=== PATIENT | male | born 1995 | race Caucasian/White ===

== ENCOUNTER 2017-11-04 20:57 | Emergency (ER) | payer BC, OTHER ==
[2017-11-04] MEDS ORDERED: MORPHINE SULFATE 4 MG INJ IV ONE ×2 (21:18→22:38)
[2017-11-04] MEDS ORDERED: Zofran 4 MG/2 ML VIAL IV ONE (21:18)
[2017-11-04] MEDS ORDERED: Sodium Chloride 0.9% 1000 ML 1,000 ML IV STA ×2 (21:18→22:08)
[2017-11-04] MEDS ORDERED: Sodium Chloride 0.9% 1000 ML 1,000 ML ONE ×2 (21:26→22:39)
[2017-11-04] MEDS ORDERED: Zofran 4 MG/2 ML VIAL ONE (21:26)
[2017-11-04] MEDS ORDERED: MORPHINE SULFATE 4 MG INJ ONE ×2 (21:26→22:39)
--- NOTE | 2017-11-04 21:29 | ERPHSYRPT ---
- History of Present Illness Time Seen by Provider: 11/04/17 21:20 Historian: patient Exam Limitations: no limitations Patient Subjective Stated Complaint: patietn expereincing right sided pain off and on since tuesday today it went to left suide severe pain and radiated into chest causing him to be short of breath Triage Nursing Assessment: pt alert and orietned x3, able to ambulate but tense and appears to be a a lot of pain states he feels like he cant breath the pain gets so bad. patietn diaphorteic skin cool to touch, bowel sounds present x4, lung sounds clear bialteral anterior and posterior. patient states he has been nauseous off and on as well. Physician History: 21-year-old white male arrives with complaint of pain in the epigastric region Patient states that he was having right-sided abdominal pain off and on since Tuesday today he began to feel pain where he describes as a left side he points with his finger to the left epigastric region. He states this began approximately one hour ago. Pain is worse with breathing. Past medical history is negative. 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 Timing/Duration: day(s) (4 days worse today) Activities at Onset: none Quality: aching, cramping Abdominal Pain Onset Location: epigastric, other (initially right side of abdomen now epigastric region) Pain Radiation: epigastric Severity of Pain-Max: moderate Severity of Pain-Current: moderate Modifying Factors: Improves With: breathing Associated Symptoms: shortness of breath, other (epigastric pain) Previous symptoms: no prior history Allergies/Adverse Reactions: No Known Drug Allergies Allergy (Verified 11/04/17 22:23) Hx Tetanus, Diphtheria Vaccination/Date Given: Yes Immunizations Up to Date: Yes - Review of Systems Constitutional: No Fever, No Chills Eyes: No Symptoms Ears, Nose, & Throat: No Symptoms Respiratory: Dyspnea, Other (pain with breathing epigastric region) Cardiac: No Chest Pain, No Edema, No Syncope Abdominal/Gastrointestinal: Nausea, Vomiting, No Abdominal Pain (I've got morphine and ), No Diarrhea Genitourinary Symptoms: No Dysuria Musculoskeletal: No Back Pain, No Neck Pain Skin: No Rash Neurological: No Dizziness, No Focal Weakness, No Sensory Changes Psychological: No Symptoms Endocrine: No Symptoms All Other Systems: Reviewed and Negative - Past Medical History Pertinent Past Medical History: No - Past Surgical History Past Surgical History: No - Social History Smoking Status: Never smoker Exposure to second hand smoke: No Drug Use: none - Nursing Vital Signs Nursing Vital Signs: Initial Vital Signs Temperature 98.1 F 11/04/17 20:58 Pulse Rate 60 11/04/17 20:58 Respiratory Rate 18 11/04/17 20:58 Blood Pressure 137/73 11/04/17 20:58 O2 Sat by Pulse Oximetry 98 11/04/17 20:58 Pain Scale Pain Intensity 5 - Physical Exam General Appearance: moderate distress, other ( well-developed well-nouished white male, alert oriented 3) Eye Exam: PERRL/EOMI, eyes nml inspection Ears, Nose, Throat Exam: normal ENT inspection, pharynx normal, moist mucous membranes Neck Exam: normal inspection, non-tender, supple, full range of motion Respiratory Exam: normal breath sounds, lungs clear, No respiratory distress Cardiovascular Exam: regular rate/rhythm, normal heart sounds Gastrointestinal/Abdomen Exam: soft, normal bowel sounds, tenderness ( epigastric tenderness) Back Exam: normal inspection, normal range of motion, No CVA tenderness, No vertebral tenderness Extremity Exam: normal inspection, normal range of motion, pelvis stable Neurologic Exam: alert, oriented x 3, cooperative, vp project II-XII nml as tested, normal mood/affect, nml cerebellar function, sensation nml, No motor deficits Skin Exam: normal color, warm, dry SpO2 Interpretation: normal (99%) SpO2: 99 Oxygen Delivery: Room Air - Course Nursing assessment & vital signs reviewed: Yes EKG Interpreted by Me: RATE (57 bpm), Sinus Rhythm, NORMAL AXIS (EKG, sinus bradycardia, 57 bpm, normal axis, normal EKG) - Radiology Exams Chest X-ray Interpretation: Discussed w/ radiologist (chest x-ray: Normal heart, lungs , andbony thorax) - CT Exams Abdomen/Pelvis CT Interpretation: Discussed w/radiologist (CT abdomen and pelvis: Impressions: no comparisons: Diffuse pancreatitis with tiny free fluid and 14.3 cm splenomegaly) Ordered Tests: Active Orders 24 hr Category Date Time Status IV Insertion STAT Care 11/04/17 21:18 Active ABDOMEN AND PELVIS W CONTRAST [CT] Stat Exams 11/04/17 22:38 Taken CHEST 1 VIEW (PORTABLE) Stat Exams 11/04/17 21:30 Completed AMYLASE Stat Lab 11/04/17 21:22 Completed CBC W DIFF Stat Lab 11/04/17 21:22 Completed CMP Stat Lab 11/04/17 21:22 Completed LIPASE Stat Lab 11/04/17 21:22 Completed UA W/RFX UR CULTURE Stat Lab 11/04/17 21:18 Completed Medication Summary Generic Name Dose Route Start Last Admin Trade Name Freq PRN Reason Stop Dose Admin Sodium Chloride 1,000 mls @ 125 mls/hr 11/05/17 00:30 11/05/17 00:21 Sodium Chloride 0.9% 1000 Ml IV 12/05/17 00:29 125 mls/hr .Q8H ANGEL LUIS Administration Discontinued Medications Generic Name Dose Route Start Last Admin Trade Name Freq PRN Reason Stop Dose Admin Sodium Chloride 1,000 mls @ 999 mls/hr 11/04/17 21:18 11/04/17 21:28 Sodium Chloride 0.9% 1000 Ml IV 11/04/17 22:18 999 mls/hr .Q1H1M STA Administration Sodium Chloride Confirm 11/04/17 21:26 Sodium Chloride 0.9% 1000 Ml Administered 11/04/17 21:27 Dose 1,000 mls @ ud .ROUTE .STK-MED ONE Sodium Chloride 1,000 mls @ 999 mls/hr 11/04/17 22:08 11/04/17 22:44 Sodium Chloride 0.9% 1000 Ml IV 11/04/17 23:08 999 mls/hr .Q1H1M STA Administration Sodium Chloride Confirm 11/04/17 22:39 Sodium Chloride 0.9% 1000 Ml Administered 11/04/17 22:40 Dose 1,000 mls @ ud .ROUTE .STK-MED ONE Sodium Chloride Confirm 11/05/17 00:16 Sodium Chloride 0.9% 1000 Ml Administered 11/05/17 00:17 Dose 1,000 mls @ ud .ROUTE .STK-MED ONE Morphine Sulfate 4 mg 11/04/17 21:18 11/04/17 21:29 Morphine Sulfate 4 Mg Inj IV 11/04/17 21:19 4 mg STAT ONE Administration Morphine Sulfate Confirm 11/04/17 21:26 Morphine Sulfate 4 Mg Inj Administered 11/04/17 21:27 Dose 4 mg .ROUTE .STK-MED ONE Morphine Sulfate 4 mg 11/04/17 22:38 11/04/17 22:45 Morphine Sulfate 4 Mg Inj IV 11/04/17 22:39 4 mg STAT ONE Administration Morphine Sulfate Confirm 11/04/17 22:39 Morphine Sulfate 4 Mg Inj Administered 11/04/17 22:40 Dose 4 mg .ROUTE .STK-MED ONE Ondansetron HCl 4 mg 11/04/17 21:18 11/04/17 21:29 Zofran 4 Mg/2 Ml Vial IV 11/04/17 21:19 4 mg STAT ONE Administration Ondansetron HCl Confirm 11/04/17 21:26 Zofran 4 Mg/2 Ml Vial Administered 11/04/17 21:27 Dose 4 mg .ROUTE .STK-MED ONE Lab/Rad Data: Laboratory Result Diagrams 11/04/17 21:22 11/04/17 21:22 Laboratory Results 11/05/17 11/04/17 11/04/17 Range/Units 00:30 21:22 21:22 WBC 12.8 H (4.0-10.5) K/mm3 RBC 5.37 (4.1-5.6) M/mm3 Hgb 15.9 (12.5-18.0) gm/dl Hct 44.5 (42-50) % MCV 82.9 (78-100) fl MCH 29.6 (26-32) pg MCHC 35.7 (32-36) g/dl RDW 12.3 (11.5-14.0) % Plt Count 228 (150-450) K/mm3 MPV 11.1 H (6-9.5) fl Gran % 58.3 (36.0-66.0) % Eos # (Auto) 0.21 (0-0.5) Absolute Lymphs (auto) 3.92 (1.0-4.6) Absolute Monos (auto) 1.17 (0.0-1.3) Lymphocytes % 30.7 (24.0-44.0) % Monocytes % 9.2 (0.0-12.0) % Eosinophils % 1.6 (0.00-5.0) % Basophils % 0.2 (0.0-0.4) % Absolute Granulocytes 7.42 H (1.4-6.9) Basophils # 0.03 (0-0.4) Sodium 144 (137-145) mmol/L Potassium 3.4 L (3.5-5.1) mmol/L Chloride 105 (98-107) mmol/L Carbon Dioxide 26 (22-30) mmol/L Anion Gap 16.4 H (5-15) MEQ/L BUN 19 (9-20) mg/dL Creatinine 1.20 (0.66-1.25) mg/dL Estimated GFR > 60.0 ML/MIN Glucose 122 H (74-106) mg/dL Calcium 9.7 (8.4-10.2) mg/dL Total Bilirubin 0.90 (0.2-1.3) mg/dL AST 143 H (17-59) U/L ALT 350 H (0-50) U/L Alkaline Phosphatase 117 (38-126) U/L Serum Total Protein 7.9 (6.3-8.2) g/dL Albumin 4.8 (3.5-5.0) g/dL Amylase 3574 H (30-110) U/L Lipase 98378 H (23-300) U/L Ur Collection Type CLEAN CATCH Urine Color YELLOW (YELLOW) Urine Appearance CLEAR (CLEAR) Urine pH 5.0 (5-6) Ur Specific [place] 1.020 (1.005-1.025) Urine Protein NEGATIVE (Negative) Urine Ketones MODERATE (NEGATIVE) Urine Blood NEGATIVE (0-5) [place]/ul Urine Nitrite NEGATIVE (NEGATIVE) Urine Bilirubin NEGATIVE (NEGATIVE) Urine Urobilinogen NORMAL (0-1) mg/dL Ur Leukocyte Esterase NEGATIVE (NEGATIVE) Urine Culture Reflexed NO (NO) Urine Glucose NEGATIVE (NEGATIVE) mg/dL Specimen Received 11/05/17 0030 - Progress Progress: improved Progress Note: 11/05/17 01:46 [id number] white male arrives with complaint of pain in his epigastric region. In moderate distress. Patient with normal sinus rhythm on EKG. Patient with normal chest x-ray. Patient with markedly elevated amylase and lipase of 3574 and 44,022 respectively patient white count was 12.9 hemoglobin 15.9 hematocrit 44.5 patient also with elevated AST and ALT Patient was given 2 L of normal saline morphine a total of 8 mg and also Zofran with improvement. Rvis CT read by Dr. Ireland remarkable for diffuse pancreatitis with tiny free fluid and 14.3 cm splenomegaly. I've contacted [facility] one call. And we'll discussed the case with Dr. Salinas Niño accepted the patient for transfer. The patient's case was discussed with Dr. Erickson as soon as patient's amylase and lipase were available. It was felt that the patient would need to go to a facility that would be capable of performing advanced procedures such as ERCP. - Departure Time of Disposition: 01:50 Departure Disposition: Transfer ([facility] Dr. Niño) Clinical Impression: Epigastric abdominal pain Pancreatitis Qualifiers: Chronicity: acute Pancreatitis type: unspecified pancreatitis type Acute pancreatitis complication: unspecified Qualified Code(s): K85.90 - Acute pancreatitis without necrosis or infection, unspecified Condition: Fair Critical Care Time: No Referrals: DOCTOR,NO FAMILY [Primary Care Provider] -
[2017-11-04 21:37] LABS: BASOPHIL % 0.2 % (0.0-0.4); Basophil (Absolute #) 0.03 (0-0.4); Eosinophil % 1.6 % (0.00-5.0); Eosinophil (Absolute #) 0.21 (0-0.5); Granulocyte Absolute (ANC) 7.42 (1.4-6.9); Granulocytes % 58.3 % (36.0-66.0); Hematocrit 44.5 % (42-50); Hemoglobin 15.9 gm/dl (12.5-18.0); Lymphocyte (Absolute #) 3.92 (1.0-4.6); Lymphocytes % 30.7 % (24.0-44.0); Mean Cell Volume 82.9 fl (78-100); Mean Corpuscular Hemoglobin 29.6 pg (26-32); Mean Corpuscular Hgb Concent. 35.7 g/dl (32-36); Mean Platelet Volume 11.1 fl (6-9.5); Monocyte (Absolute #) 1.17 (0.0-1.3); Monocytes % 9.2 % (0.0-12.0); Platelet Count 228 K/mm3 (150-450); Red Blood Count 5.37 M/mm3 (4.1-5.6); Red Cell Distribution Width 12.3 % (11.5-14.0); White Blood Count 12.8 K/mm3 (4.0-10.5)
[2017-11-04 21:49] LABS: ALBUMIN 4.8 g/dL (3.5-5.0); ALKALINE PHOSPHATASE 117 U/L (38-126); ANION GAP 16.4 MEQ/L (5-15); BLOOD UREA NITROGEN 19 mg/dL (9-20); CHLORIDE 105 mmol/L (98-107); Calcium 9.7 mg/dL (8.4-10.2); Carbon Dioxide 26 mmol/L (22-30); Glucose 122 mg/dL (74-106); Potassium 3.4 mmol/L (3.5-5.1); SGOT/AST 143 U/L (17-59); SGPT/ALT 350 U/L (0-50); SODIUM 144 mmol/L (137-145); Total Protein 7.9 g/dL (6.3-8.2)
--- NOTE | 2017-11-04 22:21 | XRAY ---
Indication: Epigastric pain. Comparison: None Portable chest demonstrates normal heart, lungs, and bony thorax.
[2017-11-04 22:34] LABS: AMYLASE 3574 U/L (30-110)
[2017-11-04 22:45] LABS: LIPASE 44022 U/L (23-300)
[2017-11-05] MEDS ORDERED: Sodium Chloride 0.9% 1000 ML 1,000 ML ONE (00:16)
[2017-11-05] MEDS ORDERED: Sodium Chloride 0.9% 1000 ML 1,000 ML IV SCH (00:30)
[2017-11-05 00:37] LABS: Appearance CLEAR (CLEAR); Bilirubin NEGATIVE (NEGATIVE); Blood NEGATIVE Ery/ul (0-5); Glucose NEGATIVE (NEGATIVE); Ketones MODERATE (NEGATIVE); Leukocyte Esterase NEGATIVE (NEGATIVE); Nitrite NEGATIVE (NEGATIVE); Protein,Urine Dip NEGATIVE (Negative); Urobilinogen NORMAL mg/dL (0-1)
[2017-11-05] MEDS ORDERED: MORPHINE SULFATE 4 MG INJ IV ONE (02:17)
[2017-11-05] MEDS ORDERED: MORPHINE SULFATE 4 MG INJ ONE (02:38)
[2017-11-05 02:58] VITALS: BP 136/84; PULSE 84; O2SAT 97
--- NOTE | 2017-11-05 05:40 | XRAY ---
Indication: Abdominal pain and nausea. Elevated amylase/lipase and WBC. Multiple contiguous axial images obtained through the abdomen and pelvis using 80 cc Isovue-370 contrast only. Comparison: None Lung bases demonstrates minimal bibasilar dependent atelectasis. No infiltrate or effusion. Tiny left base calcified granuloma. Heart is not enlarged. Noncontrasted stomach and bowel loops appear nonobstructed. Normal appendix. Pancreas demonstrates moderate diffuse peripancreatic stranding with tiny free fluid favoring acute pancreatitis. No walled off fluid collection, phlegmon, or free air. Gallbladder mildly distended with mild intrahepatic biliary prominence. Spleen is enlarged measuring 14.3 cm in greatest axial dimension with solitary calcified granuloma. Remaining liver, adrenal glands, kidneys, ureters, bladder, and aorta appear unremarkable. No pathologic retroperitoneal lymphadenopathy. Osseous structures intact. No ventral or inguinal hernias. Impression: 1. CT findings favoring acute pancreatitis with free fluid. 2. Prominent gallbladder with mild biliary tree prominence. Gallbladder sonogram may yield further information if clinically warranted. 3. Splenomegaly and evidence for old granulomatous disease. CTDI 23.52
== END 2017-11-05 03:32 | disposition short-term general hospital (02) ==
LOC: ED 20:57
DX: K85.90 Acute pancreatitis without necrosis or infection, unspecified (principal); R10.13 Epigastric pain; R11.2 Nausea with vomiting, unspecified; R06.00 Dyspnea, unspecified
CPT/HCPCS: 36000; 36415; 71045; 74177; 80053; 81002; 82150; 83690; 85025; 96360; 96361; 96374; 96375; 96376; 99285; J2270; J2405

== ENCOUNTER 2018-12-11 08:44 | Emergency (ER) | payer OTHER ==
[2018-12-11 08:59] VITALS: PULSE 92; O2SAT 98
[2018-12-11 09:55] VITALS: BP 132/67
--- NOTE | 2018-12-11 10:39 | ERPHSYRPT ---
- History of Present Illness Source: patient Exam Limitations: no limitations Patient Subjective Stated Complaint: pt reports sore throat, fever, generalized body aches for approx 24 hours. reports history of strep. Triage Nursing Assessment: pt is aox3, pt appears in no acute distress, pupils perrl, afebrile, resps easy and non labored, radial pulses strong and equal, cap refill < 3 seconds, pt appears diaphoretic. throat reddened, white exudate noted to bilat tonsils. Physician History: Sore throat with fever over past one day Timing/Duration: abrupt onset Severity: moderate ENT Location: mouth Prearrival Treatment: over the counter meds Modifying Factors: Improves With: nothing Associated Symptoms: fever, chills, sore throat, No ear pain (R), No ear pain (L ), No cough, No change in hearing, No dizziness, No drooling, No ear drainage, No facial pain/swelling, No headache, No hearing loss, No jaw pain, No malaise, No motion sickness, No nasal congestion/drainage, No epistaxis, No nasal foreign body, No neck pain, No poor fluid intake, No poor solids intake, No ringing of ears, No swollen glands, No sinus infection, No tooth pain, No difficulty swallowing, No voice change Allergies/Adverse Reactions: No Known Drug Allergies Allergy (Verified 12/11/18 08:59) Hx Tetanus, Diphtheria Vaccination/Date Given: Yes Hx Influenza Vaccination/Date Given: No Hx Pneumococcal Vaccination/Date Given: No Immunizations Up to Date: Yes - Review of Systems Constitutional: Fever, Chills, No Fatigue Eyes: No Symptoms, No Discharge, No Eye Pain, No Eye Redness, No Photophobia, No Tearing Ears, Nose, & Throat: Nose Congestion, Throat Pain, No Ear Pain, No Ear Discharge, No Hearing Changes, No Sinus Drainage, No Epistaxis, No Throat Swelling, No Painful Swallowing Respiratory: No Cough, No Dyspnea Cardiac: No Chest Pain, No Edema, No Syncope Abdominal/Gastrointestinal: No Abdominal Pain, No Nausea, No Vomiting, No Diarrhea Genitourinary Symptoms: No Dysuria, No Hematuria Musculoskeletal: No Back Pain, No Neck Pain Skin: No Pruritis, No Rash, No Skin Lesions Neurological: No Dizziness, No Focal Weakness, No Sensory Changes Psychological: No Symptoms Endocrine: No Symptoms Hematologic/Lymphatic: No Easy Bleeding, No Easy Bruising, No Adenopathy All Other Systems: Reviewed and Negative - Past Medical History Pertinent Past Medical History: No GI Medical History: Gallbladder Disease, Pancreatitis - Past Surgical History Past Surgical History: Yes Gastrointestinal: Cholecystectomy - Social History Smoking Status: Never smoker Exposure to second hand smoke: No Drug Use: none Patient Lives Alone: No - Nursing Vital Signs Nursing Vital Signs: Initial Vital Signs Temperature 99.7 F 12/11/18 08:47 Pulse Rate 92 H 12/11/18 08:47 Respiratory Rate 20 12/11/18 08:47 Blood Pressure 130/67 12/11/18 08:47 O2 Sat by Pulse Oximetry 98 12/11/18 08:47 Pain Scale Pain Intensity 7 - Physical Exam General Appearance: no apparent distress, alert Eye Exam: bilateral eye: PERRL, EOMI Ear Exam: bilateral ear: auricle normal, canal normal, TM normal Nasal Exam: normal inspection Throat Exam: pharynx normal, moist mucus membranes, No pharynx swelling, No pharynx tenderness, No tongue swollen, No tonsillar exudate, No tonsillar swelling, No trismus, No uvula swelling Neck Exam: non-tender, supple, full range of motion, No lymphadenopathy (R), No lymphadenopathy (L), No Brudzinski's sign, No Kernig's sign, No meningismus Cardiovascular/Respiratory Exam: normal breath sounds, regular rate/rhythm, heart sounds normal, no respiratory distress Abdominal Exam: non-tender, soft, no organomegaly, no hernia, No guarding, No tenderness, No hepatomegaly, No spleenomegaly Neurologic Exam: alert, oriented x 3, cooperative, 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, normal mood/affect, sensation nml, No motor deficits Skin Exam: normal color, warm, dry, No petechiae, No jaundice, No cyanosis, No ecchymosis SpO2 Interpretation: normal SpO2: 98 O2 Delivery: Room Air - Course Nursing assessment & vital signs reviewed: Yes Lab/Rad Data: Laboratory Results 12/11/18 Range/Units 09:10 Group A Strep Antibody NEGATIVE (NEGATIVE) - Progress Progress: unchanged Counseled pt/family regarding: lab results, diagnosis, need for follow-up - Departure Departure Disposition: Home Clinical Impression: Acute pharyngitis, Fever, Elevated blood pressure reading without diagnosis of hypertension Condition: Good Critical Care Time: No Referrals: GAGAN LIN MD [Primary Care Provider] - Instructions: Sore Throat, Adult (DC), Fever of Unknown Origin, DASH Diet Prescriptions: Prednisone 20 mg [Deltasone 20 mg] 60 mg PO DAILY PRN #9 tablet PRN Reason: Sore Throat Relief
== END 2018-12-11 09:56 | disposition home or self-care (01) ==
LOC: ED 08:44
DX: J02.9 Acute pharyngitis, unspecified (principal); R50.9 Fever, unspecified; R03.0 Elevated blood-pressure reading, without diagnosis of hypertension
CPT/HCPCS: 87651; 99283